=== PATIENT | male | born 1970 | race African-American/Black ===

== ENCOUNTER 2020-12-15 19:03 | Emergency (ER) | payer BC ==
[~2020-12-15] VITALS: Ht 195.5 cm; Wt 100.0 kg
--- NOTE | 2020-12-15 19:21 | ED General ---
General Stated Complaint: TROUBLE SLEEPING/ CRYING Source of Information: Patient Exam Limitations: No Limitations History of Present Illness Date Seen by Provider: Dec 15, 2020 Time Seen by Provider: 19:20 Initial Comments This is a well-appearing 50-year-old male who presents to the ER with complaints of difficulty sleeping and crying because he found out his spouse was having an affair on him with his best friend. Has tried taking ZzzQuil however states this does not help. Would like something to help him with anxiety/sleep. Has no physical complaints. Allergies and Home Medications Allergies Coded Allergies: No Known Drug Allergies (Unverified , 12/15/20) Home Medications Hydroxyzine Pamoate 50 Mg Capsule, 50 MG PO HS PRN for ANXIETY Prescribed by: NINA BOLDEN on 12/15/201940 Patient Home Medication List Home Medication List Reviewed: Yes Review of Systems Review of Systems Constitutional: no symptoms reported EENTM: no symptoms reported Respiratory: no symptoms reported Cardiovascular: no symptoms reported Gastrointestinal: no symptoms reported Genitourinary: no symptoms reported Musculoskeletal: no symptoms reported Skin: no symptoms reported Psychiatric/Neurological: See HPI Hematologic/Lymphatic: No Symptoms Reported Immunological/Allergic: no symptoms reported Physical Exam Vital Signs Vital Signs - First Documented 12/15/20 19:16 Temp 37.1 Pulse 78 Resp 20 B/P (MAP) 132/95 (107) Pulse Ox 96 O2 Delivery Room Air Capillary Refill : Height, Weight, BMI Height: '" Weight: lbs. oz. kg; BMI Method: General Appearance: No Apparent Distress, WD/WN Eyes: Bilateral Eye Normal Inspection, Bilateral Eye EOMI HEENT: PERRL/EOMI, Normal ENT Inspection, Moist Mucous Membranes Neck: Full Range of Motion, Normal Inspection, Supple Respiratory: Lungs Clear, Normal Breath Sounds, No Accessory Muscle Use Cardiovascular: Regular Rate, Rhythm, No Murmur, Normal Peripheral Pulses Gastrointestinal: Normal Bowel Sounds, Non Tender, Soft Back: Normal Inspection Neurologic/Psychiatric: Alert, Oriented x3, No Motor/Sensory Deficits, Normal Mood/Affect Skin: Normal Color, Warm/Dry Progress/Results/Core Measures Suspected Sepsis SIRS Temperature: Pulse: Respiratory Rate: Blood Pressure / Mean: Results/Orders My Orders Orders - NINA BOLDEN SLIP COVER OPERATOR Hydroxyzine Cap/Tab (Vistaril) (12/15/20 19:45) Vital Signs/I&O 12/15/20 12/15/20 19:16 20:03 Temp 37.1 Pulse 78 78 Resp 20 18 B/P (MAP) 132/95 (107) 113/102 Pulse Ox 96 99 O2 Delivery Room Air Room Air Capillary Refill : Departure Impression Primary Impression: SLEEP DEPRIVATION Disposition: HOME, SELF-CARE Condition: Stable Departure-Patient Inst. Decision time for Depature: 19:39 Patient Instructions: Insomnia (DC) Add. Discharge Instructions: Plan: 1. Take Vistaril at bedtime as needed for anxiety/insomnia. 2. Follow up with your doctor if your symptoms persist. 3. Return for any new, concerning, or worsening symptoms. Scripts Hydroxyzine Pamoate (Vistaril) 50 Mg Capsule 50 MG PO HS PRN for ANXIETY, #14 CAP 0 Refills Prov: NINA BOLDEN [employer]IP COVER OPERATOR 12/15/20 NINA BOLDEN SL[employer] COVER OPERATOR Dec 15, 2020 19:21
[2020-12-15] MEDS ORDERED: HYDR50CA PO (19:41)
[2020-12-15] MEDS ORDERED: hydrOXYzine (VISTARIL/ATARAX) 25 MG capsule/tablet PO ONE (19:45)
[2020-12-15 20:03] VITALS: BP 113/102
== END 2020-12-15 20:03 | disposition home or self-care (01) ==
LOC: ER 19:10
DX: Z72.820 Sleep deprivation (principal); F41.9 Anxiety disorder, unspecified; Z79.899 Other long term (current) drug therapy
CPT/HCPCS: 99283